=== PATIENT | male | born 1945 | race Caucasian/White ===

== ENCOUNTER 2021-04-25 11:59 | Outpatient (CLI) | payer OTHER, SELFPAY ==
--- NOTE | 2021-04-25 12:11 | USCV_ITS ---
Ernie Mitchell Age: 75 Gender: M : 1945 Exam Date: 04/25/2021 13:08 Ordering Phys: Chip Mena Technologist: Exam Location[place] [facility] [place]: AFIB BP: 130 / 76 HR: 63 Rhythm: Sinus Technical Quality: Adequate MEASUREMENTS (Male / Female) Normal Values 2D ECHO LV Diastolic Diameter PLAX 4.4 cm 4.2 - 5.9 / 3.9 - 5.3 cm LV Systolic Diameter PLAX 2.5 cm IVS Diastolic Thickness 1.1 cm 0.6 - 1.0 / 0.6 - 0.9 cm IVS Systolic Thickness 1.3 cm LVPW Diastolic Thickness 1.2 cm 0.6 - 1.0 / 0.6 - 0.9 cm LVPW Systolic Thickness 1.5 cm LVOT Diameter 3.0 cm LV Ejection Fraction 2D Teich 74.0 % LV Ejection Fraction MOD 2C 75.3 % LV Ejection Fraction 2C AL 76.6 % LA Diameter 4.1 cm LA Width 4.6 cm LA Height 5.3 cm RA Width 3.6 cm RA Height 5.0 cm Aorta at Sinotubular Diameter 3.3 cm M-MODE Aortic Annulus Diameter 3.9 cm LA Ao Ratio MM 1.1 DOPPLER AV Peak Velocity 184.0 cm/s LVOT Peak Velocity 119.0 cm/s AV Area Cont Eq vti 4.5 cm squared AV Area Cont Eq pk 4.5 cm squared MV Area PHT 5.0 cm squared Mitral E to A Ratio 1.1 MV E' Velocity 51.5 cm/s Mitral E to MV E' Ratio 9.0 Mitral E to LV E' Lateral Ratio 9.7 Mitral E to LV E' Septal Ratio 8.4 TR Peak Velocity 263.0 cm/s TR Peak Gradient 27.7 mmHg FINDINGS Left Ventricle Normal left ventricular size and systolic function, EF 74 %. Mild left ventricular hypertrophy. No regional wall motion abnormalities. Grade I/IV diastolic dysfunction (abnormal relaxation filling pattern), normal to mildly elevated filling pressures. Right Ventricle The right ventricle is normal in size and function. Right Atrium The right atrium is normal in size. Left Atrium The left atrium is normal in size. Mitral Valve Trace mitral valve regurgitation. Aortic Valve No gross abnormalities noted Tricuspid Valve No gross abnormalities noted Pulmonic Valve Pulmonic valve not well visualized. Pericardium Normal pericardium without effusion. Aorta Normal ascending aorta dimension. CONCLUSIONS Normal left ventricular size and systolic function, EF 74 %. Mild left ventricular hypertrophy. No regional wall motion abnormalities. Grade I/IV diastolic dysfunction (abnormal relaxation filling pattern), normal to mildly elevated filling pressures. Trace mitral valve regurgitation. There is no pericardial effusion. There are no intracardiac masses. No previous study is available for comparison. Dr Adelso Fall MD FACC (Electronically Signed) Final Date: 25 April 2021 18:41 S
--- NOTE | 2021-04-25 12:40 | ECG_ITS ---
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
== END 2021-04-25 12:00 | disposition home or self-care (01) ==
PROVIDERS: Visit Provider Chiropractor
DX: I49.9 Cardiac arrhythmia, unspecified (principal); I48.91 Unspecified atrial fibrillation; I34.0 Nonrheumatic mitral (valve) insufficiency
CPT/HCPCS: 93005; 93306

== ENCOUNTER 2021-07-31 12:16 | Outpatient (CLI) | payer OTHER, SELFPAY ==
--- NOTE | 2021-07-31 12:43 | USCV_ITS ---
Ernie Mitchell Age: 76 Gender: M : 1945 Exam Date: 07/31/2021 12:39 Ordering Phys: Chip Mena Technologist: Marco Antonio Marquez Exam Location: [facility] – [place] Indication: PVD RIGHT LEFT Brachial 153.00 mmHg Brachial 147.00 mmHg Pressure (mmHg) Waveform Pressure (mmHg) Waveform 186.00 PATIENT SERVICES REPRESENTATIVE 183.00 166.00 DPA 169.00 1.22 Ankle/Brachial Index 1.20 153.00 Pre-Exercise Toe Pressure 165.00 1.00 Pre-Exercise Toe/Brachial Index 1.08 FINDINGS Normal resting ABIs and TBIs bilaterally TON of 1.22 with a TBI of 1.0 on the right TON of 1.20 with a TBI of 1.08 on the left CONCLUSIONS No significant arterial obstruction, based on the above finding Dr Adelso Fall MD FAC (Electronically Signed) Final Date: 31 July 2021 19:42 S
== END 2021-07-31 12:17 | disposition home or self-care (01) ==
LOC: RAD 12:18
PROVIDERS: PCP Nurse Practitioner Family; Visit Provider Chiropractor
DX: I73.9 Peripheral vascular disease, unspecified (principal)
CPT/HCPCS: 93922